=== PATIENT | female | born 1990 | race Caucasian/White ===

== ENCOUNTER → 2025-08-10 09:41 | Outpatient (BNVA) | payer OTHER, SELFPAY | PROVIDERS: Visit Provider Internal Medicine | DX: M25.811 Other specified joint disorders, right shoulder (principal); S83.411A Sprain of medial collateral ligament of right knee, initial encounter; X50.1XXA Overexertion from prolonged static or awkward postures, initial encounter | CPT/HCPCS: 73030; 73564; 99203 ==

== ENCOUNTER → 2025-08-14 09:07 | Outpatient (BNVA) | payer OTHER, SELFPAY | PROVIDERS: Visit Provider Internal Medicine | DX: S46.911A Strain of unspecified muscle, fascia and tendon at shoulder and upper arm level, right arm, initial encounter (principal); S83.411A Sprain of medial collateral ligament of right knee, initial encounter; X50.1XXA Overexertion from prolonged static or awkward postures, initial encounter | CPT/HCPCS: 99214 ==

== ENCOUNTER → 2025-08-21 09:27 | Outpatient (BNVA) | payer OTHER, SELFPAY | PROVIDERS: Visit Provider Internal Medicine | DX: M25.811 Other specified joint disorders, right shoulder (principal); S83.411A Sprain of medial collateral ligament of right knee, initial encounter; X50.1XXA Overexertion from prolonged static or awkward postures, initial encounter | CPT/HCPCS: 99213 ==

== ENCOUNTER 2025-09-04 14:25 | Outpatient (REF) | payer OTHER, SELFPAY ==
--- NOTE | ~2025-09-04 | MR_ITS ---
EXAMINATION: MR SHOULDER WITHOUT CONTRAST, RIGHT CLINICAL INFORMATION: Pain with all motion COMPARISON: X-ray 08/10/2025 TECHNIQUE: MRI of the shoulder without contrast was performed on a high-field scanner. FINDINGS: ROTATOR CUFF: Supraspinatus: Mild tendinosis Infraspinatus: Intact Teres minor: Intact Subscapularis: Mild tendinosis No muscle atrophy or fatty infiltration. BICEPS: Intact CORACOACROMIAL ARCH: The undersurface of the acromion is flat with no subacromial spur. The acromioclavicular joint is normal. LABRUM/CAPSULE: No labral tear is seen. No prior labral cyst. Inferior capsule is intact GLENOHUMERAL JOINT/MARROW: No fracture. No aggressive marrow replacing lesion. No significant joint effusion. No axillary lymphadenopathy. MR/MR shoulder RT wo con IMPRESSION: * Mild supraspinatus and subscapularis tendinosis. No measurable tendon tear or retraction is seen.. Electronically signed by: Bradley Villagran MD 09/04/2025 04:56 PM EST
--- OUTSIDE RECORDS SUMMARY | 2025-09-04 21:25 | XMS_ITS | Clinical Summary ---
Author Organization Formerly [facility] Address [address] [place] [address] Care Team Providers Care Dormitory Supervisor Name Role Phone Unavailable Primary Care Provider Unavailabl e Social History Tobacco Use Types Packs/Day Years Used Date Smoking Tobacco: Never Assessed Comments Unknown Sex and Gender Information Value Date Recorded Sex Assigned at Not on file Legal Sex Female 12:16 PM EDT Gender Identity Not on file Sexual Orientation Not on file Plan of Treatment Health Maintenance Due Date Last Done Comments Hepatitis C Virus Screening 1988 HIV Screening 01/24/2001 DTaP/Tdap/Td Vaccines (1 - Tdap) 01/24/2007 Hepatitis B Vaccines (1 of 3 - 19+ 3-dose series) 01/24/2007 COVID-19 Vaccine ( - 2023-2 5 season) 2025 HPV Vaccines (No Doses Required) Completed Pneumococcal Vaccine: Pediat german (0-5 Years) and At-Risk Patients (6 to 49 Years) Aged Out No longer eligible b ased on patient's age to complete this topic
== END 2025-09-04 14:26 | disposition home or self-care (01) ==
LOC: HO.MRI 14:25
PROVIDERS: Visit Provider Internal Medicine
DX: M25.511 Pain in right shoulder (principal)
CPT/HCPCS: 73221

== ENCOUNTER → 2025-09-04 14:41 | Outpatient (BNV) | payer OTHER, SELFPAY | PROVIDERS: Visit Provider Radiology Diagnostic Ultrasound | DX: M75.31 Calcific tendinitis of right shoulder (principal) | CPT/HCPCS: 73221 ==

== ENCOUNTER → 2025-09-11 09:26 | Outpatient (BNVA) | payer OTHER, SELFPAY | PROVIDERS: Visit Provider Internal Medicine | DX: M25.811 Other specified joint disorders, right shoulder (principal); S83.411D Sprain of medial collateral ligament of right knee, subsequent encounter; X50.1XXD Overexertion from prolonged static or awkward postures, subsequent encounter | CPT/HCPCS: 99213 ==

== ENCOUNTER → 2025-10-07 11:08 | Outpatient (BNVA) | payer OTHER, SELFPAY | PROVIDERS: Visit Provider Internal Medicine | DX: S83.411D Sprain of medial collateral ligament of right knee, subsequent encounter (principal); S46.001D Unspecified injury of muscle(s) and tendon(s) of the rotator cuff of right shoulder, subsequent encounter; X50.1XXD Overexertion from prolonged static or awkward postures, subsequent encounter; Z02.79 Encounter for issue of other medical certificate | CPT/HCPCS: 99213 ==